=== PATIENT | female | born 2000 | race Caucasian/White ===

== ENCOUNTER 2020-10-22 15:27 | Outpatient (REF) | payer OTHER, SELFPAY | END 2020-10-22 15:28 | disposition home or self-care (01) | LOC: HO.LAB 15:27 | PROVIDERS: Visit Provider Internal Medicine | DX: Z20.822 Contact with and (suspected) exposure to COVID-19 (principal) | CPT/HCPCS: 36415; C9803; U0003; U0005 ==

== ENCOUNTER 2021-01-30 14:14 | Emergency (ER) | payer OTHER, SELFPAY ==
[2021-01-30 14:25] VITALS: BP 121/75; PULSE 90; RESP 18; TEMP 36.6; O2SAT 99; BMI 35.2
--- NOTE | 2021-01-30 14:41 | ED.GENADULT ---
HPI - General Adult General Chief complaint: General Medical Stated complaint: BUMP BEHIND L EAR Time Seen by Provider: 01/30/21 14:41 History of Present Illness HPI narrative: patient complains of 2 small bumps behind the left ear, they itch a little bit there is no pain there is no injury there is no earache no headache Related Data Allergies Allergy/AdvReac Type Severity Reaction Status Date / Time No Known Allergies Allergy Unverified 04/15/20 18:12 Review of Systems Review of Systems: positive for small bumps behind left ear Negatives are no fever no chills no dizziness no weakness no headache no neck pain no numbness weakness or tingling no earache no sore throat no neck pain Yes all other systems are reviewed and are negative PMFSH Past Medical History Source: nursing notes reviewed Medical History (Updated 01/30/21 @ 14:47 by RICHARD Mcghee) Asthma Social History Social History Advance Directives: No Advance Directives Information Provided: No Patient : No Physical Exam Vital Signs: Vital Signs: Last Vital Signs Temp 98 F 01/30/21 14:25 Pulse 90 01/30/21 14:25 Resp 18 01/30/21 14:25 BP 121/75 01/30/21 14:25 Pulse Ox 99 01/30/21 14:25 Body Mass Index 35.2 general appearance is no acute distress head is normocephalic atraumatic The skin exam of the head there are 2 small bumps consistent with insect bites that are normal color of skin not red not warm 1 just above the left ear and 1 in the scalp just above that, no evidence of cellulitis no redness or warmth, no mastoid tenderness or swelling, no discharge no fluctuance The ear exam the left ear has normal tympanic membrane and normal canal Right ear is the same with normal canal normal tympanic membrane Pharynx is normal no redness swelling or exudate, voice is normal Neck is supple No respiratory distress Skin no rashes Course Course Course Narrative: 2 small nodules above the ear are consistent with insect bites, they are mildly itchy they are not painful though not red warm or fluctuant, not painful or tender Discharge Plan Discharge Clinical Impression: Insect bite Patient Disposition: Home, Self-Care Additional Instructions: right now the small bumps look like insect bites that are not infected There is no sign of abscess or skin infection If they become more painful or more swollen or worsen any way you can return at any time for recheck Right now no treatment is needed and most likely there were resolve on their own in a few days Interventions: ED Discharge Assessment Last Done: 01/30/21 14:49 Discharge Date/Time: 01/30/21 14:50
== END 2021-01-30 14:50 | disposition home or self-care (01) ==
PROVIDERS: Emergency Provider Emergency Medicine; PCP Pediatrics Adolescent Medicine
DX: S00.86XA Insect bite (nonvenomous) of other part of head, initial encounter (principal); W57.XXXA Bitten or stung by nonvenomous insect and other nonvenomous arthropods, initial encounter; Y93.9 Activity, unspecified; Y92.9 Unspecified place or not applicable; Y99.9 Unspecified external cause status
CPT/HCPCS: 99282; 99283

== ENCOUNTER 2021-03-25 08:18 | Emergency (ER) | payer OTHER, SELFPAY ==
[2021-03-25 08:39] VITALS: BP 108/64; PULSE 87; RESP 16; TEMP 36.6; O2SAT 98; BMI 42.5
--- NOTE | 2021-03-25 08:49 | ED.SKABFB ---
HPI - Skin/Abscess/Foreign Bdy General Chief complaint: Skin/Abscess/Foreign Body Stated complaint: rash Time Seen by Provider: 03/25/21 08:40 Source: patient Mode of arrival: ambulatory Limitations: no limitations History of Present Illness HPI narrative: Patient presents to the ED itchy rash. Patient states itchy rash on back and also circular dry itchy rash on the umbilicus. Patient states she sweats profusely. Patient denies any fever or chills. Patient denies going to the house are being bitten by a tick are going to [employer]. Patient denies any swelling of lips, swelling of tongue, chest pain, shortness of breath. Patient denies any recent trauma. Patient states she was placed on cream by PCP but does not recall the name. Related Data Previous Rx's Medication Instructions Recorded clotrimazole-betamethasone 1 1 appl TOPICAL BID 14 Days #30 ml 03/25/21 %-0.05 % lotion hydroxyzine HCl 25 mg tablet 25 mg PO TID 7 Days #21 tab 03/25/21 Allergies Allergy/AdvReac Type Severity Reaction Status Date / Time No Known Allergies Allergy Unverified 04/15/20 18:12 Review of Systems Constitutional: Constitutional: Reports as per HPI and Reports no additional constitutional complaints Eyes: Eyes: Reports as per HPI and Reports no additional eye complaints ENT: Reports system reviewed and no additional complaints, except as documented and Reports as per HPI Cardiovascular: Cardiovascular: Reports as per HPI and Reports no additional cardiovascular complaints Respiratory: Respiratory: Reports as per HPI and Reports no additional respiratory complaints Gastrointestinal: Gastrointestinal: Reports as per HPI and Reports no additional gastrointestinal complaints Genitourinary: Genitourinary: Reports no additional female genitourinary complaints and Reports as per HPI Musculoskeletal: Musculoskeletal: Reports no additional musculoskeletal complaints and Reports as per HPI Integumentary/Breasts: Skin/Breast: Reports system reviewed and no additional complaints, except as docu, Reports as per HPI and Reports rash Neurologic: Reports system reviewed and no additional complaints, except as documented and Reports as per HPI Psychiatric: Psychiatric: Reports no additional psychiatric complaints and Reports as per HPI PMF Past Medical History Medical History (Updated 03/25/21 @ 09:03 by RICHARD Velazquez) Asthma Social History Social History Advance Directives: No Advance Directives Information Provided: No Patient : No Physical Exam Vital Signs: Vital Signs: Last Vital Signs Temp 97.9 F 03/25/21 08:39 Pulse 87 03/25/21 08:39 Resp 16 03/25/21 08:39 BP 108/64 03/25/21 08:39 Pulse Ox 98 03/25/21 08:39 Body Mass Index 42.5 Const: General: cooperative, healthy appearing, comfortable, no acute distress, well developed, alert, awake and Physically active Orientation/consciousness: patient oriented x3 Neck: Neck: Yes normal visual inspection, Yes full ROM, Yes no lymphadenopathy, Yes no meningeal signs, Yes trachea midline, Yes supple and No tender Chest: Chest palpation & inspection: normal inspection of the chest and normal palpation of entire chest wall Resp: Effort & Inspection: normal respiratory effort and able to speak in complete sentences Auscultation: clear to auscultation bilaterally Cardio: Jugular venous distension: no JVD Heart sounds: S1 normal heart sound present and S2 normal heart sound present GI: Inspection: Yes normal to inspection and No abdominal wall ecchymosis Palpation (GI): Soft to palpation, not firm, nontender, no guarding and not rigid : General: No CVA tenderness and Yes no CVA tenderness Back/Spine/Pelvis: Back: no CVA tenderness, No CVA tenderness and No back tenderness Skin: Full body images: 1. Positive for erythematous scaly circular rash on umbilicus. 2. Erythematous circular scaly rash. 3. Erythematous circular scaly rash 4. Erythematous circular scaly rash 5. Erythematous circular scaly rash Neuro: General: patient oriented x3, no meningeal signs and CN's II-XI intact bilaterally Cranial nerves: Yes CN's II-XII intact bilaterally Extrem: General: Yes normal to inspection and Yes full ROM Psych: Appearance: grossly normal, well kempt and not disheveled Course Course Course Narrative: Scaly rash. Reevaluation(s) Reevaluation #1: Rash indicate fungal rash. Not suspecting igiugig. Rash is not bull's eye. Patient states she was given a cream but does not recall name, but states starts with and n. rash does not indicate cellulitis. Patient thinks it might be steroid. Will discharge patient Lotrisone for antifungal rash. Time: 09:00 MDM - Skin/Abscess/Foreign Bdy MDM Narrative Medical decision making narrative: tinea fungal rash Discharge Plan Discharge Clinical Impression: Tinea Patient Disposition: Home, Self-Care Instructions: Tinea Corporis (ED) Additional Instructions: History physical exam indicate fungal rash. You will be discharged with the cream that will have steroid and antifungal. Stop using the cream your prescribed by your PCP. Return to the ED immediately for any swelling of lips, swelling of tongue, shortness of breath, worsening rash, fever, chills, chest pain, shortness of breath, sensation of throat closing, or any other concerning symptoms. Please follow up with PCP. Prescriptions: New clotrimazole-betamethasone 1-0.05 % lotion 1 appl topical BID 14 Days Qty: 30 RF: 0 hydroxyzine HCl 25 mg tablet 25 mg PO TID 7 Days Qty: 21 RF: 0 Interventions: ED Discharge Assessment Last Done: 03/25/21 09:23 Discharge Date/Time: 03/25/21 09:23 Print Language: Serbian
== END 2021-03-25 09:23 | disposition home or self-care (01) ==
PROVIDERS: Emergency Provider Emergency Medicine; PCP Pediatrics Adolescent Medicine
DX: B35.4 Tinea corporis (principal)
CPT/HCPCS: 99283

== ENCOUNTER 2021-04-12 20:46 | Emergency (ER) | payer OTHER, SELFPAY | END 2021-04-12 21:30 | disposition left against medical advice (07) | PROVIDERS: Emergency Provider Emergency Medicine; PCP Pediatrics Adolescent Medicine | DX: Z48.02 Encounter for removal of sutures (principal) ==

== ENCOUNTER 2021-12-11 11:19 | Emergency (ER) | payer OTHER, SELFPAY ==
--- NOTE | 2021-12-11 | ECG_ITS ---
Test Reason : Tachacardia Blood Pressure : / mmHG Vent. Rate : 124 BPM Atrial Rate : 124 BPM P-R Int : 130 ms QRS Dur : 072 ms QT Int : 300 ms P-R-T Axes : 058 004 041 degrees QTc Int : 431 ms Sinus tachycardia Otherwise normal ECG No previous ECGs available Referred By: Generic ED Physician Electronically Signed By:SHARATH BRIZUELA MD
[2021-12-11 11:56] VITALS: BP 120/89; PULSE 130; RESP 18; TEMP 36.3; O2SAT 97; BMI 37.0
[2021-12-11] MEDS: Ondansetron ODT 4 MG TAB.RAPDIS TRANSLINGU (12:04)
[2021-12-11 12:42] LABS: Alanine Aminotransferase 20 U/L (0-31); Albumin Level 4.2 g/dL (3.5-5.0); Alkaline Phosphatase 85 U/L (39-117); Aspartate Amino Transferase 18 U/L (5-31); Bilirubin Direct < 0.2 mg/dL (0.0-0.5); Bilirubin Total 0.2 mg/dL (0.0-1.0); Total Protein 7.6 g/dL (6.5-8.0)
[2021-12-11 12:58] LABS: COVID-19 Test Negative (Negative)
[2021-12-11 12:59] LABS: IDNOW Serial# 16C4AD1C; Influenza A Positive (Negative); Influenza B2 Negative (Negative)
[2021-12-11 13:21] LABS: Anion Gap 13 (12-20); Blood Urea Nitrogen 8 mg/dL (9-16); Calcium 9.2 mg/dL (8.4-10.2); Carbon Dioxide 23 mmol/L (22-29); Chloride 106 mmol/L (96-108); Creatinine Clr Calc Pharmacy 117.2; Estimated Glomerular Filt Rate > 60; Glucose Random 105 mg/dL (60-115); Potassium 3.6 mmol/L (3.3-5.1); Sodium 138 mmol/L (135-145)
== END 2021-12-11 16:22 | disposition left against medical advice (07) ==
LOC: HO.ED 16:02
PROVIDERS: Physician Assistant Medical; Emergency Provider Emergency Medicine; PCP Pediatrics Adolescent Medicine
DX: R50.9 Fever, unspecified (principal); R11.10 Vomiting, unspecified; R05.9 Cough, unspecified; Z20.822 Contact with and (suspected) exposure to COVID-19
CPT/HCPCS: 80053; 80076; 82248; 87502; 87635; 93005; 99281; 99283

== ENCOUNTER 2022-05-12 03:19 | Emergency (ER) | payer OTHER, SELFPAY ==
[2022-05-12 03:27] VITALS: BP 118/79; PULSE 100; RESP 20; TEMP 36.7; O2SAT 98; BMI 39.0
--- NOTE | 2022-05-12 03:45 | ED_ITS ---
HPI - Alcohol General Chief Complaint: ETOH/Substance Use Stated Complaint: crisis Time Seen by Provider: 05/12/22 03:41 Source: patient and EMS Mode of arrival: EMS Limitations: no limitations History of Present Illness HPI narrative: Patient had 4 or 5 drinks of vodka prior to arrival started vomiting intoxicated family wanted her to go to hospital as she too much junk. In the ER patient feels much better able to ambulate no fall or trauma patient ambulatory in the ER here Related Data Previous Rx's Medication Instructions Recorded clotrimazole-betamethasone 1 1 appl topical BID 2 weeks #30 mL 03/25/21 %-0.05 % lotion hydroxyzine HCl 25 mg tablet 25 mg PO TID 7 days #21 tabs 03/25/21 Allergies Allergy/AdvReac Type Severity Reaction Status Date / Time No Known Allergies Allergy Unverified 04/15/20 18:12 Review of Systems Review of Systems: Yes all other systems are reviewed and are negative [facility] Past Medical History Medical History Asthma Social History Social History Advance Directives: Yes Advance Directives Information Provided: Yes Advance Directives on File: No Physical Exam ED Vital Signs: Vital Signs - 24 hr 05/12/22 03:27 Temperature 98.1 F Pulse Rate 100 Respiratory Rate 20 Blood Pressure 118/79 Pulse Oximetry 98 Oxygen Delivery Method Room Air BMI result Body Mass Index 39.0 Appearance: Alert. Oriented X3. No acute distress. Intoxicated etoh+ Eyes: PERRLA, No Nystagmus ENT: Pharynx normal. Oral Mucosa moist Neck: Normal inspection. Neck supple. CVS: Normal heart rate and rhythm. Pulses normal. Respiratory: No respiratory distress. Equal air entry bilateral, no wheezing/rales/rhonchi Abdomen: Soft and nontender. Bowel sounds are present, no mass palpable, no CVA tenderness Skin: Skin warm and dry. Normal skin color. Normal skin turgor. Extremities: No lower extremity edema. No calf tenderness Neuro: Oriented X 3. No motor deficit. No sensory deficit.No cerebellar signs , cranial nerves II-XII intact gait fairly stable Discharge Plan Discharge Clinical Impression: Alcoholic intoxication Patient Disposition: Home, Self-Care Instructions: Alcohol Intoxication (ED) Additional Instructions: Rest at home Stop drinking alcohol Follow detox if any concern Prescriptions: No Action clotrimazole-betamethasone 1-0.05 % lotion 1 appl topical BID 14 Days Qty: 30 0RF hydroxyzine HCl 25 mg tablet 25 mg PO TID 7 Days Qty: 21 0RF
[2022-05-12] MEDS: Omeprazole 40 MG CAPSULE.DR PO (03:51)
[2022-05-12] MEDS: Ondansetron ODT 4 MG TAB.RAPDIS TRANSLINGU (03:51)
== END 2022-05-12 03:58 | disposition home or self-care (01) ==
PROVIDERS: Emergency Provider Internal Medicine; PCP Pediatrics Adolescent Medicine
DX: F10.129 Alcohol abuse with intoxication, unspecified (principal); Y90.9 Presence of alcohol in blood, level not specified
CPT/HCPCS: 99283

== ENCOUNTER 2024-09-29 06:59 | Emergency (ER) | payer OTHER, SELFPAY ==
[2024-09-29 07:05] VITALS: BP 131/87; PULSE 82; RESP 16; TEMP 35.8; O2SAT 98; BMI 43.5
[2024-09-29 07:26] LABS: UPreg QC Valid YES; Urine Pregnancy NEGATIVE (NEGATIVE)
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
[2024-09-29 08:47] VITALS: BP 131/87; PULSE 82; RESP 16; TEMP 36; O2SAT 98
[2024-09-29 10:09] LABS: Bacterial Vaginosis PCR POSITIVE (Negative); Candida Group PCR NOT DETECTED (Not Detect); Candida glab krusei PCR DETECTED (Not Detect); Trichomonas vaginalis PCR NOT DETECTED (Not Detect)
[2024-09-29 10:42] LABS: CT PCR NOT DETECTED (Not Detect.); NG PCR NOT DETECTED (Not Detect.)
== END 2024-09-29 08:47 | disposition home or self-care (01) ==
PROVIDERS: Physician Assistant Medical; Emergency Provider Emergency Medicine; PCP Pediatrics Adolescent Medicine
DX: Z32.02 Encounter for pregnancy test, result negative (principal); N76.0 Acute vaginitis; B96.89 Other specified bacterial agents as the cause of diseases classified elsewhere; J45.909 Unspecified asthma, uncomplicated
CPT/HCPCS: 81025; 81515; 87491; 87591; 99282; 99283

== ENCOUNTER 2025-03-01 02:35 | Emergency (ER) | payer OTHER, SELFPAY ==
[2025-03-01 02:38] VITALS: BP 114/55; BP 120/90; PULSE 110; PULSE 78; RESP 16; TEMP 36.8; O2SAT 98; O2SAT 99; BMI 44.9
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
== END 2025-03-01 04:00 | disposition home or self-care (01) ==
PROVIDERS: Emergency Provider Emergency Medicine
DX: S00.93XA Contusion of unspecified part of head, initial encounter (principal); R51.9 Headache, unspecified; W19.XXXA Unspecified fall, initial encounter; Y93.9 Activity, unspecified; Y92.9 Unspecified place or not applicable; Y99.9 Unspecified external cause status
CPT/HCPCS: 99281; 99282; J1885